=== PATIENT | male | born 1990 | race Caucasian/White ===

== ENCOUNTER 2021-01-27 17:36 | Emergency (ER) | payer OTHER ==
[~2021-01-27] VITALS: Ht 180.3 cm; Wt 91.1 kg
[2021-01-27 18:36] LABS: BASOPHILS % (AUTO) 1 % (0-1); EOSINOPHILS % (AUTO) 0 % (1-7); LYMPHOCYTES % (AUTO) 25 % (22-44); MEAN CORPUSCULAR HEMOGLOBIN 28.9 pg (27.5-34.5); MEAN CORPUSCULAR HGB CONC 34.5 g/dL (33.2-36.2); MEAN PLATELET VOLUME 7.5 fL (7.4-10.4); MONOCYTES % (AUTO) 6 % (2-9); NEUTROPHILS % (AUTO) 68 % (42-75); PLATELET COUNT 292 x10^3/uL (130-400); RED BLOOD COUNT 5.51 x10^6/uL (4.38-5.82); RED CELL DISTRIBUTION WIDTH 13.6 % (9.4-14.8)
[2021-01-27 18:40] LABS: ALBUMIN 4.3 g/dL (3.4-5.0); ANION GAP 6 mmol/L (5-15); CALCIUM 8.5 mg/dL (8.5-10.1); CHLORIDE 102 mmol/L (98-107); CREATININE 0.98 mg/dL (0.7-1.3)
--- NOTE | 2021-01-27 19:38 | NUR ---
PSYCHOLOGICAL ANTHROPOLOGIST: PT. TO ROOM FROM LOBBY AT THIS TIME.
[2021-01-27 19:54] VITALS: BP 148/99
[2021-01-27] MEDS ORDERED: MAGNESIUM OXIDE 400 MG TABLET ONE (20:29)
[2021-01-27] MEDS ORDERED: MAGNESIUM OXIDE 400 MG TABLET PO ONE (20:30)
== END 2021-01-27 21:19 | disposition home or self-care (01) ==
LOC: ED 20:49
DX: R20.2 Paresthesia of skin (principal); E83.42 Hypomagnesemia; R51.9 Headache, unspecified; R07.89 Other chest pain
CPT/HCPCS: 36415; 71045; 80048; 82040; 83735; 85025; 93005; 99285